=== PATIENT | female | born 1970 | race American Indian/Alaskan Native ===

== ENCOUNTER 2019-03-22 13:17 | Emergency (ER) | payer BC ==
[2019-03-22 13:25] VITALS: BP 141/76
--- NOTE | 2019-03-22 13:36 | Emergency Department Report ---
Blank Doc - Documentation Documentation: This is a 48-year-old female that presents with left shoulder pain after lifting a bowling ball. This initial assessment/diagnostic orders/clinical plan/treatment(s) is/are subject to change based on patient's health status, clinical progression and re- assessment by fellow clinical providers in the ED. Further treatment and workup at subsequent clinical providers discretion. Patient/guardians urged not to elope from the ED as their condition may be serious if not clinically assessed and managed. Initial orders include: 1- Patient sent to [facility] for further evaluation and treatment 2- xray
--- NOTE | 2019-03-22 14:24 | XRay Report ---
PROCEDURE: XR SHOULDER 2+V LT TECHNIQUE: 3 views left shoulder HISTORY: left shoulder pain COMPARISONS: None FINDINGS: No significant arthritic change. Normal alignment. No acute fracture. Mineralization unremarkable. No radiopaque foreign body IMPRESSION: No acute fracture or malalignment. No advanced arthritis. This document is electronically signed by Yoan Jennings MD., Mar 22 2019 02:22:24 PM ET
--- NOTE | 2019-03-22 15:56 | Emergency Department Report ---
ED Upper Extremity Inj HPI - General Chief Complaint: Shoulder Injury Stated Complaint: L SHOULDER PAIN Time Seen by Provider: 03/22/19 13:36 Source: patient Mode of arrival: Ambulatory Limitations: No Limitations - History of Present Illness Initial Comments: 48 yo F with left shoulder pain since lifting a 12 lb bowling ball on yesterday. Pt states she felt something pop MD Complaint: Injury to:: left, shoulder -: days(s) (1) Other Injuries: none Improves With: immobilization Worsens With: movement of extremity Associated Symptoms: heard/felt popping sensat. denies: numbness - Related Data Previous Rx's Medication Instructions Recorded Last Taken Type Naproxen [Naprosyn] 500 mg PO BID #20 tablet 03/22/19 Unknown Rx traMADol [Ultram] 50 mg PO Q6HR PRN #7 tablet 03/22/19 Unknown Rx Allergies Allergy/AdvReac Type Severity Reaction Status Date / Time No Known Allergies Allergy Unverified 03/22/19 13:19 ED Review of Systems ROS: Stated complaint: L SHOULDER PAIN Other details as noted in HPI Comment: All other systems reviewed and negative Musculoskeletal: as per HPI, arthralgia Neurological: denies: numbness, paresthesias ED Past Medical Hx - Past Medical History Hx Asthma: Yes - Surgical History Additional Surgical History: knee, C/S - Social History Smoking Status: Never Smoker Substance Use Type: None - Medications Home Medications: Home Medications Medication Instructions Recorded Confirmed Last Taken Type Naproxen [Naprosyn] 500 mg PO BID #20 tablet 03/22/19 Unknown Rx traMADol [Ultram] 50 mg PO Q6HR PRN #7 tablet 03/22/19 Unknown Rx ED Physical Exam - General Limitations: No Limitations General appearance: alert, in no apparent distress - Head Head exam: Present: atraumatic - Eye Eye exam: Present: normal appearance - ENT ENT exam: Present: mucous membranes moist - Neck Neck exam: Present: normal inspection - Respiratory Respiratory exam: Present: normal lung sounds bilaterally. Absent: respiratory distress - Cardiovascular Cardiovascular Exam: Present: regular rate, normal rhythm - GI/Abdominal GI/Abdominal exam: Absent: distended - Extremities Exam Extremities exam: Present: other (pain w/ abduction of left shoulder, decreased ROM; strength 5/5 in LUE; sensation grossly intact) - Neurological Exam Neurological exam: Present: alert, oriented X3. Absent: motor sensory deficit - Psychiatric Psychiatric exam: Present: normal affect, normal mood - Skin Skin exam: Present: warm, dry, intact, normal color ED Course Vital Signs 03/22/19 13:24 Temperature 98.0 F Pulse Rate 90 Respiratory 16 Rate Blood Pressure 141/76 O2 Sat by Pulse 97 Oximetry ED Medical Decision Making - Radiology Data Radiology results: report reviewed, image reviewed - Differential Diagnosis tendinitis, fracture, dislocation Critical care attestation.: If time is entered above; I have spent that time in minutes in the direct care of this critically ill patient, excluding procedure time. ED Disposition Clinical Impression: Rotator cuff (capsule) sprain Disposition: TO HOME OR SELFCARE Is pt being admited?: No Condition: Stable Instructions: Rotator Cuff Injury (ED), Rotator Cuff Tendinitis (ED) Prescriptions: Naproxen [Naprosyn] 500 mg PO BID #20 tablet traMADol [Ultram] 50 mg PO Q6HR PRN #7 tablet PRN Reason: Pain Referrals: VICTOR M PINZON MD [Staff Physician] - 3-5 Days MAT VARNER MD [Primary Care Provider] - 3-5 Days Time of Disposition: 16:01
== END 2019-03-22 16:22 | disposition home or self-care (01) ==
LOC: ED 13:17
DX: S43.422A Sprain of left rotator cuff capsule, initial encounter (principal); J45.909 Unspecified asthma, uncomplicated; X50.9XXA Other and unspecified overexertion or strenuous movements or postures, initial encounter; Y93.89 Activity, other specified; Y92.89 Other specified places as the place of occurrence of the external cause; Y99.8 Other external cause status

== ENCOUNTER 2019-05-31 16:27 | Inpatient (IN) | payer BC ==
[2019-05-31] MEDS ORDERED: ASPIRIN PO ONE (16:37)
[2019-05-31] MEDS ORDERED: MORPHINE IV ONE (17:00)
--- NOTE | 2019-05-31 17:01 | Emergency Department Report ---
ED Chest Pain HPI - General Chief Complaint: Chest Pain Stated Complaint: JUSTO Time Seen by Provider: 05/31/19 16:53 Source: patient, EMS Mode of arrival: Stretcher Limitations: No Limitations - History of Present Illness Initial Comments: Patient is a 48-year-old female presents to the emergency room for chest pain. Patient states the pain started at 3 PM. Patient states the pain is radiating to her neck and to her back. Patient states the pain is a 10 out of 10 per patient states she received aspirin and nitroglycerin in route by EMS with no relief. Patient states the pain is a 10 out of 10. Patient also complains of shortness of breath. Patient denies diaphoresis. Patient denies fever and chills. Patient denies anxiety. Patient states she is also having left shoulder pain but that was from a previous injury. Patient states she is not sure when her last menstrual period was MD Complaint: chest pain -: Sudden Pain Location: substernal, left chest Pain Radiation: back, neck Severity: severe Severity scale (0 -10): 10 Quality: sharp Consistency: constant Improves With: rest Worsens With: exertion re: dyspnea. denies: nausea, vomting, diaphoresis, sense of impending doom Other Symptoms: denies: cough, fever, syncope, rash, acid taste in mouth, leg swelling, palpitations, burping Treatments Prior to Arrival: none Aspirin use within the Past 7 Days: (0) No - Related Data On Oral Contraceptives: No Home Medications Medication Instructions Recorded Confirmed Last Taken Diclofenac Sodium 75 mg PO BID 05/31/19 05/31/19 05/30/19 Tizanidine HCl [Zanaflex 4mg CAP] 4 mg PO QDAY 05/31/19 05/31/19 05/30/19 Allergies Allergy/AdvReac Type Severity Reaction Status Date / Time No Known Allergies Allergy Unverified 03/22/19 13:19 Heart Score - HEART Score History: Moderately suspicious EKG: Non-specific Age: 45-65 Risk factors: No known risk factors Troponin: < normal limit HEART Score: 3 ED Review of Systems ROS: Stated complaint: JUSTO Other details as noted in HPI Constitutional: denies: chills, fever Eyes: denies: eye pain, eye discharge, vision change ENT: denies: ear pain, throat pain Respiratory: shortness of breath. denies: cough, wheezing Cardiovascular: chest pain. denies: palpitations Endocrine: no symptoms reported Gastrointestinal: denies: abdominal pain, nausea, diarrhea Genitourinary: denies: urgency, dysuria, discharge Musculoskeletal: denies: back pain, joint swelling, arthralgia Skin: denies: rash, lesions Neurological: denies: headache, weakness, paresthesias Psychiatric: denies: anxiety, depression Hematological/Lymphatic: denies: easy bleeding, easy bruising ED Past Medical Hx - Past Medical History Previous Medical History?: Yes Hx Diabetes: No Hx Asthma: Yes - Surgical History Past Surgical History?: Yes Additional Surgical History: knee, C/S - Family History Family history: no significant - Social History Smoking Status: Never Smoker Substance Use Type: None - Medications Home Medications: Home Medications Medication Instructions Recorded Confirmed Last Taken Type Diclofenac Sodium 75 mg PO BID 05/31/19 05/31/19 05/30/19 History Tizanidine HCl [Zanaflex 4mg CAP] 4 mg PO QDAY 05/31/19 05/31/19 05/30/19 History ED Physical Exam - General Limitations: No Limitations General appearance: alert, in no apparent distress - Head Head exam: Present: atraumatic, normocephalic - Eye Eye exam: Present: normal appearance, PERRL Pupils: Present: normal accommodation - ENT ENT exam: Present: mucous membranes moist - Neck Neck exam: Present: normal inspection - Respiratory Respiratory exam: Present: normal lung sounds bilaterally. Absent: respiratory distress, wheezes, rales - Cardiovascular Cardiovascular Exam: Present: regular rate, normal rhythm. Absent: systolic murmur, diastolic murmur, rubs, gallop - GI/Abdominal GI/Abdominal exam: Present: soft, normal bowel sounds - Extremities Exam Extremities exam: Present: normal inspection - Back Exam Back exam: Present: normal inspection - Neurological Exam Neurological exam: Present: alert, oriented X3 - Psychiatric Psychiatric exam: Present: normal affect, normal mood - Skin Skin exam: Present: warm, dry, intact, normal color. Absent: rash ED Course Vital Signs 05/31/19 05/31/19 05/31/19 16:34 16:37 19:15 Temperature 100.0 F H 98.3 F Pulse Rate 101 H 98 H Respiratory 20 12 19 Rate Blood Pressure Blood Pressure 200/124 164/80 157/80 [Left] O2 Sat by Pulse 100 100 Oximetry 05/31/19 05/31/19 05/31/19 19:30 19:46 20:00 Temperature Pulse Rate 99 H 94 H 102 H Respiratory 14 18 16 Rate Blood Pressure 162/87 157/80 141/73 Blood Pressure [Left] O2 Sat by Pulse 98 98 88 Oximetry 05/31/19 05/31/19 05/31/19 20:16 20:30 20:50 Temperature Pulse Rate 101 H 98 H 97 H Respiratory 21 29 H 17 Rate Blood Pressure 141/73 131/80 131/80 Blood Pressure [Left] O2 Sat by Pulse 98 93 98 Oximetry 05/31/19 05/31/19 05/31/19 20:52 21:00 21:10 Temperature Pulse Rate 98 H 99 H Respiratory 21 20 21 Rate Blood Pressure 130/79 130/79 Blood Pressure [Left] O2 Sat by Pulse 99 97 Oximetry 05/31/19 05/31/19 21:15 21:28 Temperature 98.6 F Pulse Rate Respiratory Rate Blood Pressure Blood Pressure [Left] O2 Sat by Pulse 98 Oximetry - Reevaluation(s) Reevaluation #1: I discussed results with patient. I discussed plan of care with patient. Patient agrees with plan of care. Patient will be admitted to the hospitalist service. 05/31/19 18:00 - Consultations Consultation #1: Hospitalist consult for admission. Hospitalist to admit patient. 05/31/19 18:25 ZAFAR score - Zafar Score Age > 65: (0) No Aspirin use within the Past 7 Days: (0) No 3 or more CAD Risk Factors: (0) No 2 or more Angina events in past 24 hrs: (0) No Known CAD with more than 50% Stenosis: (0) No Elevated Cardiac Markers: (0) No ST Deviation Greater than 0.5mm: (0) No ZAFAR Score: 0 ED Medical Decision Making - Lab Data Result diagrams: 05/31/19 Unknown 05/31/19 Unknown - EKG Data -: EKG Interpreted by Me EKG shows normal: sinus rhythm, axis, intervals, QRS complexes, ST-T waves Rate: normal - Radiology Data Radiology results: report reviewed CHEST 1 VIEW INDICATION / CLINICAL INFORMATION: Chest Pain. COMPARISON: None available. FINDINGS: SUPPORT DEVICES: None. HEART / MEDIASTINUM: No significant abnormality. LUNGS / PLEURA: No significant pulmonary or pleural abnormality. No pneumothorax. ADDITIONAL FINDINGS: No significant additional findings. IMPRESSION: 1. No acute findings. - Medical Decision Making Patient is a 48-year-old female presents emergency room with chest pain and shortness of breath. Patient has been radiating to the neck. Patient slept on it consistent with DKA. Patient stating she doesn't have a history of any medical problems except for asthma. Elevated sugar. Venous pH done after a liter of fluid was given. Chest x-ray negative. EKG negative. Patient admitted to the ICU - Differential Diagnosis chest pain. ACS. Shortness of breath. DKA. Critical Care Time: Yes Critical care attestation.: If time is entered above; I have spent that time in minutes in the direct care of this critically ill patient, excluding procedure time. Critical Care Time: 45 minutes ED Disposition Clinical Impression: SOB (shortness of breath), Hyponatremia, Diabetic hyperosmolar non-ketotic state Chest pain Qualifiers: Chest pain type: unspecified Qualified Code(s): R07.9 - Chest pain, unspecified DKA (diabetic ketoacidoses) Qualifiers: Diabetes mellitus type: type 2 Diabetes mellitus complication detail: without coma Qualified Code(s): E11.10 - Type 2 diabetes mellitus with ketoacidosis without coma Disposition: DC-09 OP ADMIT IP TO THIS HOSP Is pt being admited?: Yes Does the pt Need Aspirin: No Condition: Fair Time of Disposition: 18:30
[2019-05-31 17:10] LABS: Basophils # (Auto) 0.1 K/mm3 (0.0-0.1); Basophils % (Auto) 0.9 % (0.0-1.8); Eosinophils % (Auto) 0.1 % (0.0-4.3); Hematocrit 47.5 % (30.3-42.9); Hemoglobin 16.1 gm/dl (10.1-14.3); Lymphocytes # (Auto) 1.7 K/mm3 (1.2-5.4); Lymphocytes % (Auto) 11.7 % (13.4-35.0); Mean Corpuscular HGB Conc 34 % (30-34); Mean Corpuscular Volume 87 fl (79-97); Monocytes # (Auto) 0.1 K/mm3 (0.0-0.8); Monocytes % (Auto) 0.7 % (0.0-7.3); Platelet Count 310 K/mm3 (140-440); Red Blood Count 5.44 M/mm3 (3.65-5.03); Red Cell Distribution Width 13.9 % (13.2-15.2)
[2019-05-31 17:20] LABS: Bilirubin,Urine NEG (Negative); Blood,Urine NEG (Negative); Color,Urine Colorless (Yellow); Mucus,Urine FEW /HPF; Urobilinogen,Urine < 2.0 mg/dL (<2.0)
[2019-05-31 17:32] LABS: BUN/Creatinine Ratio 13; Blood Urea Nitrogen 10 mg/dL (7-17); Calcium 9.2 mg/dL (8.4-10.2); Hemolysis Index 10
[2019-05-31] MEDS ORDERED: NACL 0.9% 1000 ML 1,000 ML IV ONE ×2 (17:50→20:34)
[2019-05-31] MEDS ORDERED: D50W (25GM) Syringe IV PRN ×2 (17:50→20:09)
--- NOTE | 2019-05-31 17:52 | XRay Report ---
CHEST 1 VIEW INDICATION / CLINICAL INFORMATION: Chest Pain. COMPARISON: None available. FINDINGS: SUPPORT DEVICES: None. HEART / MEDIASTINUM: No significant abnormality. LUNGS / PLEURA: No significant pulmonary or pleural abnormality. No pneumothorax. ADDITIONAL FINDINGS: No significant additional findings. IMPRESSION: 1. No acute findings. Signer Name: Beto Lemon MD Signed: 05/31/2019 5:48 PM Workstation Name: [id number]
[2019-05-31] MEDS: HumuLIN R 100 UNITS in NACL 0.9% 99 ML IV SCH (18:33)
[2019-05-31 19:01] LABS: BUN/Creatinine Ratio 16; Blood Urea Nitrogen 11 mg/dL (7-17); Calcium 8.9 mg/dL (8.4-10.2); Hemolysis Index 31
--- NOTE | 2019-05-31 20:08 | History and Physical Report ---
History of Present Illness Date of examination: 05/31/19 Date of admission: 05/31/2019 Chief complaint: Chest pain for 1 day Generalized weakness for 1 day History of present illness: 48-year-old -[place] female, obese with no significant past medical history comes in for chest pain since 3 PM. Chest pain radiated into her neck and her back. EMS gave her aspirin and nitroglycerin with no relief. Patient also has generalized weakness and polyuria. No fever or chills. No diaphoresis. Some shortness of breath present. No palpitations. No exacerbating or precipitating factors. Past Medical History Previous Medical History?: Yes Hx Asthma: Yes Left rotator cuff injury Not a known diabetic Surgical History Past Surgical History?: Yes Additional Surgical History: Right knee arthroscopy , 1 Family History Family history: no significant Social History Smoking Status: Never Smoker Substance Use Type: None Medications Home Medications: Home Medications Medication Instructions Recorded Confirmed Last Taken Type Naproxen [Naprosyn] 500 mg PO BID #20 tablet 03/22/19 Unknown Rx traMADol [Ultram] 50 mg PO Q6HR PRN #7 tablet 03/22/19 Unknown Rx Review of systems ROS: Stated complaint: JUSTO Other details as noted in HPI Constitutional: denies: chills, fever,, feels weak and polyuria present Eyes: denies: eye pain, eye discharge, blurred vision present ENT: denies: ear pain, throat pain Respiratory: shortness of breath. denies: cough, wheezing Cardiovascular: chest pain. denies: palpitations Endocrine: no symptoms reported Gastrointestinal: denies: abdominal pain, nausea, diarrhea Genitourinary: denies: urgency, dysuria, discharge Musculoskeletal: denies: back pain, joint swelling, arthralgia Skin: denies: rash, lesions Neurological: denies: headache, weakness, paresthesias Psychiatric: denies: anxiety, depression Hematological/Lymphatic: denies: easy bleeding, easy bruising 14 point review of systems done and otherwise negative Medications and Allergies Allergies Allergy/AdvReac Type Severity Reaction Status Date / Time No Known Allergies Allergy Unverified 03/22/19 13:19 Home Medications Medication Instructions Recorded Confirmed Last Taken Type Diclofenac Sodium 75 mg PO BID 05/31/19 05/31/19 05/30/19 History Tizanidine HCl [Zanaflex 4mg CAP] 4 mg PO QDAY 05/31/19 05/31/19 05/30/19 History Active Meds: Active Medications Dextrose (D50w (25gm) Syringe) 0 ml IV PRN PRN PRN Reason: Hypoglycemia Insulin Human Regular 100 (units/ Sodium Chloride) 100 mls @ 1 mls/hr IV TITR EMI; Protocol Last Titration: 05/31/19 19:46 Dose: 7 units/hr, 7 mls/hr Documented by: Exam - Constitutional Vitals: Temp Pulse Resp BP Pulse Ox 100.0 F H 101 H 12 164/80 100 05/31/19 16:37 05/31/19 16:37 05/31/19 16:37 05/31/19 16:37 05/31/19 16:37 General appearance: Present: mild distress, well-nourished - EENT Eyes: Present: PERRL ENT: hearing intact, clear oral mucosa - Neck Neck: Present: supple, normal ROM - Respiratory Respiratory effort: normal Respiratory: bilateral: CTA - Cardiovascular Heart rate: 88 Rhythm: regular Heart Sounds: Present: S1 & S2. Absent: rub, click - Extremities Extremities: no ischemia, pulses intact, pulses symmetrical, No edema Peripheral Pulses: within normal limits - Abdominal General gastrointestinal: Present: soft, non-tender, non-distended, normal bowel sounds Female genitourinary: Present: normal - Rectal Rectal Exam: deferred - Integumentary Integumentary: Present: clear, warm, dry - Musculoskeletal Musculoskeletal: gait normal, strength equal bilaterally - Psychiatric Psychiatric: appropriate mood/affect, intact judgment & insight - Neurologic Neurologic: CNII-XII intact, moves all extremities - Allied Health Allied health notes reviewed: nursing, case management Results - Labs CBC & Chem 7: 05/31/19 Unknown 05/31/19 Unknown Labs: Laboratory Last Values WBC 14.2 K/mm3 (4.5-11.0) H 05/31/19 Unknown RBC 5.44 M/mm3 (3.65-5.03) H 05/31/19 Unknown Hgb 16.1 gm/dl (10.1-14.3) H 05/31/19 Unknown Hct 47.5 % (30.3-42.9) H 05/31/19 Unknown MCV 87 fl (79-97) 05/31/19 Unknown MCH 30 pg (28-32) 05/31/19 Unknown MCHC 34 % (30-34) 05/31/19 Unknown RDW 13.9 % (13.2-15.2) 05/31/19 Unknown Plt Count 310 K/mm3 (140-440) 05/31/19 Unknown Lymph % (Auto) 11.7 % (13.4-35.0) L 05/31/19 Unknown Parmer % (Auto) 0.7 % (0.0-7.3) 05/31/19 Unknown Eos % (Auto) 0.1 % (0.0-4.3) 05/31/19 Unknown Baso % (Auto) 0.9 % (0.0-1.8) 05/31/19 Unknown Lymph # 1.7 K/mm3 (1.2-5.4) 05/31/19 Unknown Parmer # 0.1 K/mm3 (0.0-0.8) 05/31/19 Unknown Eos # 0.0 K/mm3 (0.0-0.4) 05/31/19 Unknown Baso # 0.1 K/mm3 (0.0-0.1) 05/31/19 Unknown Seg Neutrophils % 86.6 % (40.0-70.0) H 05/31/19 Unknown Seg Neutrophils # 12.3 K/mm3 (1.8-7.7) H 05/31/19 Unknown VBG pH 7.397 (7.320-7.420) 05/31/19 18:50 Sodium 129 mmol/L (137-145) L 05/31/19 Unknown Potassium 4.8 mmol/L (3.6-5.0) 05/31/19 Unknown Chloride 92.6 mmol/L (98-107) L 05/31/19 Unknown Carbon Dioxide 18 mmol/L (22-30) L 05/31/19 Unknown 23 mmol/L 05/31/19 Unknown BUN 10 mg/dL (7-17) 05/31/19 Unknown 0.8 mg/dL (0.7-1.2) 05/31/19 Unknown Estimated GFR > 60 ml/min 05/31/19 Unknown 13 % 05/31/19 Unknown Glucose 666 mg/dL (65-100) H* 05/31/19 Unknown POC Glucose 388 (70-105) H 05/31/19 19:52 Calcium 9.2 mg/dL (8.4-10.2) 05/31/19 Unknown Phosphorus 2.80 mg/dL (2.5-4.5) 05/31/19 18:37 Magnesium 1.90 mg/dL (1.7-2.3) 05/31/19 18:37 < 0.010 ng/mL (0.00-0.029) 05/31/19 Unknown HCG, Qual Negative (Negative) 05/31/19 17:00 Colorless (Yellow) 05/31/19 Unknown Clear (Clear) 05/31/19 Unknown 6.0 (5.0-7.0) 05/31/19 Unknown Ur Specific [place] 1.024 (1.003-1.030) 05/31/19 Unknown 30 mg/dl mg/dL (Negative) 05/31/19 Unknown >=500 mg/dL (Negative) 05/31/19 Unknown Tr mg/dL (Negative) 05/31/19 Unknown Neg (Negative) 05/31/19 Unknown Neg (Negative) 05/31/19 Unknown Neg (Negative) 05/31/19 Unknown < 2.0 mg/dL (<2.0) 05/31/19 Unknown Ur Leukocyte Esterase Neg (Negative) 05/31/19 Unknown 1.0 /HPF (0.0-6.0) 05/31/19 Unknown 4.0 /HPF (0.0-6.0) 05/31/19 Unknown Few /HPF 05/31/19 Unknown Short CBC 05/31/19 Range/Units Unknown WBC 14.2 H (4.5-11.0) K/mm3 Hgb 16.1 H (10.1-14.3) gm/dl Hct 47.5 H (30.3-42.9) % Plt Count 310 (140-440) K/mm3 BMP 05/31/19 05/31/19 18:37 Unknown Sodium 131 L 129 L Potassium 5.1 H 4.8 Chloride 95.8 L 92.6 L Carbon Dioxide 20 L 18 L BUN 11 10 Creatinine 0.7 0.8 Glucose 587 H* 666 H* Calcium 8.9 9.2 Cardiac Enzymes 05/31/19 Range/Units Unknown Troponin T < 0.010 (0.00-0.029) ng/mL Urine 07/31/19 Range/Units Unknown Urine Color Colorless (Yellow) Urine pH 6.0 (5.0-7.0) Ur Specific [place] 1.024 (1.003-1.030) Urine Protein 30 mg/dl (Negative) mg/dL Urine Glucose (UA) >=500 (Negative) mg/dL - Imaging and Cardiology EKG: report reviewed (sinus rhythm heart rate of 92/m) Chest x-ray: report reviewed (no acute findings) Assessment and Plan Assessment and plan: Critical care segment The high probability of a clinically significant, sudden or life-threatening deterioration of the pulmonary, cardiac, renal systems required by full and direct attention, intervention and personal management. The aggregate K time was 35 minutes. This time is in addition to times when performing reported procedures but includes the following #1 data review and interpretation #2 patient assessment and monitoring of vital signs #3 documentation #4 medication orders and management Advance Directives: Yes (full code) VTE prophylaxis?: Chemical Plan of care discussed with patient/family: Yes - Patient Problems (1) Diabetic hyperosmolar non-ketotic state Current Visit: Yes Status: Acute Plan to address problem: New-onset diabetes with high blood glucose levels of 699 Clinical picture consistent with hyperosmolar state Urine ketones trace No DKA IV insulin per DKA protocol IV fluids for now Admit to ICU Critical care consult requested Diabetes education Patient may be switched to NovoLog Mix 70/30 twice a day--- will defer to the primary team Check hemoglobin A1c Patient to be educated about insulin administration (2) Chest pain Current Visit: Yes Status: Acute Qualifiers: Chest pain type: unspecified Qualified Code(s): R07.9 - Chest pain, unspecified Plan to address problem: Chest pain protocol Serial troponins Lexiscan in the morning Gerd in the differential diagnosis (3) Hyponatremia Current Visit: Yes Status: Acute Plan to address problem: Should correct with control of blood glucose levels (4) Hyperkalemia Current Visit: Yes Status: Acute Plan to address problem: Mild Should correct with IV insulin (5) Left anterior shoulder pain Current Visit: Yes Status: Chronic Plan to address problem: Secondary to rotator cuff tear Follow up with orthopedics as outpatient (6) Leukocytosis Current Visit: Yes Status: Acute Plan to address problem: Secondary to probable demargination No antibiotics initiated Chest x-ray and urine negative for infection (7) DVT prophylaxis Current Visit: Yes Status: Acute Plan to address problem: On Lovenox and GI prophylaxis
[2019-05-31] MEDS ORDERED: DILAUDID IV PRN (20:14)
[2019-05-31] MEDS ORDERED: IBUPROFEN PO PRN (20:14)
[2019-05-31] MEDS ORDERED: SODIUM CHLORIDE FLUSH SYRINGE 10 ML IV PRN (20:14)
[2019-05-31 20:52] LABS: BUN/Creatinine Ratio 18; Blood Urea Nitrogen 11 mg/dL (7-17); Calcium 8.9 mg/dL (8.4-10.2); Hemolysis Index 21
[2019-05-31] MEDS ORDERED: KCL 10MEQ/100ML 10 MEQ/100 ML BAG IV PRN ×2 (21:00)
[2019-05-31] MEDS ORDERED: HumuLIN R 100 UNITS in NACL 0.9% 99 ML IV SCH (21:00)
[2019-05-31] MEDS ORDERED: D5W/0.45% NACL/KCL 20 MEQ 20 MEQ/1,000 ML BAG IV SCH (21:00)
[2019-05-31] MEDS ORDERED: NACL 0.9% 1000 ML 1,000 ML ONE (21:07)
[2019-05-31] MEDS ORDERED: NACL 0.9% 1000 ML 1,000 ML IV SCH (22:00)
[2019-05-31 22:08] LABS: BUN/Creatinine Ratio 18; Blood Urea Nitrogen 11 mg/dL (7-17); Hemolysis Index 6
[2019-05-31] MEDS: SODIUM CHLORIDE FLUSH SYRINGE 10 ML IV SCH (22:45)
[2019-05-31] MEDS: LOVENOX SUB-Q SCH (22:52)
[2019-05-31 23:42] LABS: BUN/Creatinine Ratio 17; Blood Urea Nitrogen 10 mg/dL (7-17); Calcium 8.9 mg/dL (8.4-10.2); Hemolysis Index 5
[2019-06-01 07:39] LABS: BUN/Creatinine Ratio 18; Blood Urea Nitrogen 9 mg/dL (7-17); Calcium 8.8 mg/dL (8.4-10.2); Hemolysis Index 4
[2019-06-01] MEDS: HumuLIN R 100 UNITS in NACL 0.9% 99 ML IV SCH (09:50)
[2019-06-01] MEDS: LOVENOX SUB-Q SCH (09:52)
[2019-06-01] MEDS: SODIUM CHLORIDE FLUSH SYRINGE 10 ML IV SCH ×2 (09:53→21:40)
[2019-06-01] MEDS ORDERED: LEXISCAN IV ONE (10:00)
--- NOTE | 2019-06-01 10:21 | Progress Note ---
Assessment and Plan Assessment and plan: Patient is a 48 yo woman with a history of asthma and left rotator cuff injury who presents to [facility] with left sided Chest pains at rest that was different from the left shoulder pains. She also had dizziness and sob. She had just come back from doctor after receiving Cortisone injection for the left rotator cuff pains. She had bp of 200/124 and temp of 100.0F. Her blood glucose level was as high as 666. She denies having DM. She did have trace ketones in the urine but pH was 7.397 so she was diagnosis with HONK instead of DKA. She was placed on Insulin drip and admitted to the ICU. HONK: transition off insulin drip to long acting insulin New onset IDDM, A1c is 13.1 which means her daily average blood glucose is ~326: Education done, start sq insulin injection HypoOsm hyponatremia: treat with IVF Suspected mild metabolic acidosis, resolved Chest pains with negative Troponins x 2: stress test in AM, cancel this morning by Cardiology because patient on insulin drip, once off insulin drip Leukocytosis suspected due to the "cortisone injection" DVT ppx reviewed on sq lovenox full code CCT 33 minutes History Interval history: Patient was seen and examined. Follow-up on current diagnosis of Chest pains and new onset DM. No overnight events reported to me. Patient denies any chest pain, shortness breath, nausea/vomiting or severe headaches. Imaging, nursing note, chart, labs and old chart reviewed. Discussed with patient. Hospitalist Physical - Physical exam Narrative exam: Gen: WDWN, unkempt, NAD, Awake, Alert, Orientated x 3, bmi 42.8 HEENT: NCAT, EOMI, PERRL, OP Clear Neck: supple, no adenopathy, no thyromegaly, no JVD CVS/Heart: RRR, normal S1S2, pulses present bilaterally Chest/Lungs: CTA B, Symmetrical chest expansion, good air entry bilaterally, reproducible left side chest wall tenderness GI/Abdomen: soft, NTND, good bowel sounds, no guarding or rebound /Bladder: no suprapubic tenderness, no CVA or paraspinal tenderness Extermity/Skin: no c/c/e, no obvious rash MSK: FROM x 3, lrom left shoulder not frozen Neuro: CN 2-12 grossly intact, no new focal deficits Psych: calm - Constitutional Vitals: Temp Pulse Resp BP Pulse Ox 98.1 F 86 21 132/72 98 06/01/19 04:00 06/01/19 09:01 06/01/19 09:01 06/01/19 09:01 06/01/19 09:01 General appearance: Absent: mild distress, well-nourished Results - Labs CBC & Chem 7: 05/31/19 Unknown 06/01/19 06:36 Labs: Laboratory Last Values WBC 14.2 K/mm3 (4.5-11.0) H 05/31/19 Unknown RBC 5.44 M/mm3 (3.65-5.03) H 05/31/19 Unknown Hgb 16.1 gm/dl (10.1-14.3) H 05/31/19 Unknown Hct 47.5 % (30.3-42.9) H 05/31/19 Unknown MCV 87 fl (79-97) 05/31/19 Unknown MCH 30 pg (28-32) 05/31/19 Unknown MCHC 34 % (30-34) 05/31/19 Unknown RDW 13.9 % (13.2-15.2) 05/31/19 Unknown Plt Count 310 K/mm3 (140-440) 05/31/19 Unknown Lymph % (Auto) 11.7 % (13.4-35.0) L 05/31/[address] [place] % (Auto) 0.7 % (0.0-7.3) 05/31/19 Unknown Eos % (Auto) 0.1 % (0.0-4.3) 05/31/19 Unknown Baso % (Auto) 0.9 % (0.0-1.8) 05/31/19 Unknown Lymph # 1.7 K/mm3 (1.2-5.4) 05/31/[address] [place] # 0.1 K/mm3 (0.0-0.8) 05/31/19 Unknown Eos # 0.0 K/mm3 (0.0-0.4) 05/31/19 Unknown Baso # 0.1 K/mm3 (0.0-0.1) 05/31/19 Unknown Seg Neutrophils % 86.6 % (40.0-70.0) H 05/31/19 Unknown Seg Neutrophils # 12.3 K/mm3 (1.8-7.7) H 05/31/19 Unknown VBG pH 7.397 (7.320-7.420) 05/31/19 18:50 Sodium 135 mmol/L (137-145) L 06/01/19 06:36 Potassium 4.2 mmol/L (3.6-5.0) 06/01/19 06:36 Chloride 101.1 mmol/L (98-107) 06/01/19 06:36 Carbon Dioxide 21 mmol/L (22-30) L 06/01/19 06:36 17 mmol/L 06/01/19 06:36 BUN 9 mg/dL (7-17) 06/01/19 06:36 0.5 mg/dL (0.7-1.2) L 06/01/19 06:36 Estimated GFR > 60 ml/min 06/01/19 06:36 18 % 06/01/19 06:36 Glucose 275 mg/dL (65-100) H 06/01/19 06:36 POC Glucose 232 (70-105) H 06/01/19 09:39 13.1 % (4-6) H 05/31/19 21:28 Calcium 8.8 mg/dL (8.4-10.2) 06/01/19 06:36 Phosphorus 2.10 mg/dL (2.5-4.5) L D 05/31/19 21:28 Magnesium 1.80 mg/dL (1.7-2.3) 05/31/19 21:28 < 0.010 ng/mL (0.00-0.029) 06/01/19 06:36 HCG, Qual Negative (Negative) 05/31/19 17:00 Colorless (Yellow) 05/31/19 Unknown Clear (Clear) 05/31/19 Unknown 6.0 (5.0-7.0) 05/31/19 Unknown Ur Specific [place] 1.024 (1.003-1.030) 05/31/19 Unknown 30 mg/dl mg/dL (Negative) 05/31/19 Unknown >=500 mg/dL (Negative) 05/31/19 Unknown Tr mg/dL (Negative) 05/31/19 Unknown Neg (Negative) 05/31/19 Unknown Neg (Negative) 05/31/19 Unknown Neg (Negative) 05/31/19 Unknown < 2.0 mg/dL (<2.0) 05/31/19 Unknown Ur Leukocyte Esterase Neg (Negative) 05/31/19 Unknown 1.0 /HPF (0.0-6.0) 05/31/19 Unknown 4.0 /HPF (0.0-6.0) 05/31/19 Unknown Few /HPF 05/31/19 Unknown Active Medications - Current Medications Current Medications: Generic Name Dose Route Start Last Admin Trade Name Freq PRN Reason Stop Dose Admin Enoxaparin Sodium 40 mg 05/31/19 21:00 06/01/19 09:52 Lovenox SUB-Q 40 mg QDAY EMI Administration Hydromorphone HCl 0.5 mg 05/31/19 20:14 Dilaudid IV Q3H PRN Pain , Severe (7-10) Sodium Chloride 1,000 mls @ 125 mls/hr 05/31/19 22:00 05/31/19 21:00 Nacl 0.9% 1000 Ml IV 125 mls/hr DIRECT EMI Administration Insulin Glargine 10 units 06/01/19 10:02 Lantus SUB-Q 06/01/19 10:03 ONCE ONE Sodium Chloride 10 ml 05/31/19 22:00 06/01/19 09:53 Sodium Chloride Flush Syringe 10 Ml IV 10 ml BID EMI Administration Sodium Chloride 10 ml 05/31/19 20:14 Sodium Chloride Flush Syringe 10 Ml IV PRN PRN LINE FLUSH
[2019-06-01] MEDS ORDERED: D50W (25GM) Syringe IV PRN (10:26)
[2019-06-01 10:49] LABS: Creatinine,Urine 104.3 mg/dL (0.1-20.0); Microalbumin/Creatinine Ratio 54.6 ug/mg
[2019-06-01] MEDS ORDERED: LANTUS SUB-Q ONE (11:00)
[2019-06-01] MEDS: BABY ASPIRIN PO SCH (11:03)
[2019-06-01] MEDS: HumaLOG SUB-Q SCH ×3 (12:27→23:34)
--- NOTE | 2019-06-01 13:45 | Consultation ---
History of Present Illness - Reason for Consult Consult date: 06/01/19 [facility] Requesting physician: LEXA COLON - History of Present Illness Patient is a 48 yo woman with a history of asthma and left rotator cuff injury who presents to [facility] with left sided Chest pains at rest that was different from the left shoulder pains. She also had dizziness and sob. She had just come back from doctor after receiving Cortisone injection for the left rotator cuff pains. She had bp of 200/124 and temp of 100.0F. Her blood glucose level was as high as 666. She denies having DM. She did have trace ketones in the urine but pH was normal. Despite this was placed on insulin drip and admitted to the unit. Since then drip has been discontinued and patient has been started on lantus. Past History Past Medical History: hypertension, other (Joint issues,) Past Surgical History: Other (rotator cuff) Social history: no significant social history Medications and Allergies Allergies Allergy/AdvReac Type Severity Reaction Status Date / Time No Known Allergies Allergy Unverified 03/22/19 13:19 Home Medications Medication Instructions Recorded Confirmed Last Taken Type Diclofenac Sodium 75 mg PO BID 05/31/19 05/31/19 05/30/19 History Tizanidine HCl [Zanaflex 4mg CAP] 4 mg PO QDAY 05/31/19 05/31/19 05/30/19 History Active Meds: Active Medications Aspirin (Baby Aspirin) 81 mg PO QDAY [facility] Last Admin: 06/01/19 11:03 Dose: 81 mg Documented by: Atorvastatin Calcium (Lipitor) 40 mg PO QHS [facility] Dextrose (D50w (25gm) Syringe) 50 ml IV PRN PRN PRN Reason: Hypoglycemia Enoxaparin Sodium (Lovenox) 40 mg SUB-Q QDAY [facility] Last Admin: 06/01/19 09:52 Dose: 40 mg Documented by: Hydromorphone HCl (Dilaudid) 0.5 mg IV Q3H PRN PRN Reason: Pain , Severe (7-10) Sodium Chloride (Nacl 0.9% 1000 Ml) 1,000 mls @ 125 mls/hr IV DIRECT [facility] Last Admin: 05/31/19 21:00 Dose: 125 mls/hr Documented by: Insulin Glargine (Lantus) 10 units SUB-Q QHS EMI Insulin Human Lispro (Humalog) 0 unit SUB-Q ACHS EMI; Protocol Last Admin: 06/01/19 12:27 Dose: 4 unit Documented by: Sodium Chloride (Sodium Chloride Flush Syringe 10 Ml) 10 ml IV BID [facility] Last Admin: 06/01/19 09:53 Dose: 10 ml Documented by: Sodium Chloride (Sodium Chloride Flush Syringe 10 Ml) 10 ml IV PRN PRN PRN Reason: LINE FLUSH Review of Systems All systems: negative Exam - Constitutional Vitals: Temp Pulse Resp BP Pulse Ox 98.1 F 87 18 144/94 98 06/01/19 04:00 06/01/19 13:01 06/01/19 13:01 06/01/19 13:01 06/01/19 13:01 General appearance: Present: no acute distress, obese - EENT Eyes: Present: PERRL, EOM intact ENT: hearing intact - Neck Neck: Present: supple, normal ROM - Respiratory Respiratory effort: normal Respiratory: bilateral: CTA - Cardiovascular Rhythm: regular Heart Sounds: Present: S1 & S2 - Extremities Extremities: no ischemia Results - Labs CBC & Chem 7: 05/31/19 Unknown 06/01/19 06:36 Labs: Abnormal lab results 05/31/19 05/31/19 05/31/19 Range/Units 18:24 18:37 19:52 WBC (4.5-11.0) K/mm3 RBC (3.65-5.03) M/mm3 Hgb (10.1-14.3) gm/dl Hct (30.3-42.9) % Lymph % (Auto) (13.4-35.0) % Seg Neutrophils % (40.0-70.0) % Seg Neutrophils # (1.8-7.7) K/mm3 Sodium 131 L (137-145) mmol/L Potassium 5.1 H (3.6-5.0) mmol/L Chloride 95.8 L (98-107) mmol/L Carbon Dioxide 20 L (22-30) mmol/L Creatinine (0.7-1.2) mg/dL Glucose 587 H* (65-100) mg/dL POC Glucose 459 H 388 H (70-105) Hemoglobin A1c (4-6) % Phosphorus (2.5-4.5) mg/dL Urine Creatinine (0.1-20.0) mg/dL 05/31/19 05/31/19 05/31/19 Range/Units 20:13 20:44 21:28 WBC (4.5-11.0) K/mm3 RBC (3.65-5.03) M/mm3 Hgb (10.1-14.3) gm/dl Hct (30.3-42.9) % Lymph % (Auto) (13.4-35.0) % Seg Neutrophils % (40.0-70.0) % Seg Neutrophils # (1.8-7.7) K/mm3 Sodium 130 L (137-145) mmol/L Potassium 5.2 H (3.6-5.0) mmol/L Chloride 94.6 L (98-107) mmol/L Carbon Dioxide 20 L (22-30) mmol/L Creatinine 0.6 L (0.7-1.2) mg/dL Glucose 535 H* (65-100) mg/dL POC Glucose 362 H (70-105) Hemoglobin A1c 13.1 H (4-6) % Phosphorus (2.5-4.5) mg/dL Urine Creatinine (0.1-20.0) mg/dL 05/31/19 05/31/19 05/31/19 Range/Units 21:28 21:28 21:41 WBC (4.5-11.0) K/mm3 RBC (3.65-5.03) M/mm3 Hgb (10.1-14.3) gm/dl Hct (30.3-42.9) % Lymph % (Auto) (13.4-35.0) % Seg Neutrophils % (40.0-70.0) % Seg Neutrophils # (1.8-7.7) K/mm3 Sodium 135 L (137-145) mmol/L Potassium (3.6-5.0) mmol/L Chloride (98-107) mmol/L Carbon Dioxide 20 L (22-30) mmol/L Creatinine 0.6 L (0.7-1.2) mg/dL Glucose 370 H (65-100) mg/dL POC Glucose 312 H (70-105) Hemoglobin A1c (4-6) % Phosphorus 2.10 L D (2.5-4.5) mg/dL Urine Creatinine (0.1-20.0) mg/dL 05/31/19 05/31/19 05/31/19 Range/Units 22:44 22:57 23:34 WBC (4.5-11.0) K/mm3 RBC (3.65-5.03) M/mm3 Hgb (10.1-14.3) gm/dl Hct (30.3-42.9) % Lymph % (Auto) (13.4-35.0) % Seg Neutrophils % (40.0-70.0) % Seg Neutrophils # (1.8-7.7) K/mm3 Sodium 136 L (137-145) mmol/L Potassium (3.6-5.0) mmol/L Chloride (98-107) mmol/L Carbon Dioxide (22-30) mmol/L Creatinine 0.6 L (0.7-1.2) mg/dL Glucose 316 H (65-100) mg/dL POC Glucose 288 H 294 H (70-105) Hemoglobin A1c (4-6) % Phosphorus (2.5-4.5) mg/dL Urine Creatinine (0.1-20.0) mg/dL 05/31/19 05/31/19 06/01/19 Range/Units Unknown Unknown 00:37 WBC 14.2 H (4.5-11.0) K/mm3 RBC 5.44 H (3.65-5.03) M/mm3 Hgb 16.1 H (10.1-14.3) gm/dl Hct 47.5 H (30.3-42.9) % Lymph % (Auto) 11.7 L (13.4-35.0) % Seg Neutrophils % 86.6 H (40.0-70.0) % Seg Neutrophils # 12.3 H (1.8-7.7) K/mm3 Sodium 129 L (137-145) mmol/L Potassium (3.6-5.0) mmol/L Chloride 92.6 L (98-107) mmol/L Carbon Dioxide 18 L (22-30) mmol/L Creatinine (0.7-1.2) mg/dL Glucose 666 H* (65-100) mg/dL POC Glucose 281 H (70-105) Hemoglobin A1c (4-6) % Phosphorus (2.5-4.5) mg/dL Urine Creatinine (0.1-20.0) mg/dL 06/01/19 06/01/19 06/01/19 Range/Units 01:39 02:35 03:40 WBC (4.5-11.0) K/mm3 RBC (3.65-5.03) M/mm3 Hgb (10.1-14.3) gm/dl Hct (30.3-42.9) % Lymph % (Auto) (13.4-35.0) % Seg Neutrophils % (40.0-70.0) % Seg Neutrophils # (1.8-7.7) K/mm3 Sodium (137-145) mmol/L Potassium (3.6-5.0) mmol/L Chloride (98-107) mmol/L Carbon Dioxide (22-30) mmol/L Creatinine (0.7-1.2) mg/dL Glucose (65-100) mg/dL POC Glucose 244 H 269 H 244 H (70-105) Hemoglobin A1c (4-6) % Phosphorus (2.5-4.5) mg/dL Urine Creatinine (0.1-20.0) mg/dL 06/01/19 06/01/19 06/01/19 Range/Units 04:37 05:38 06:36 WBC (4.5-11.0) K/mm3 RBC (3.65-5.03) M/mm3 Hgb (10.1-14.3) gm/dl Hct (30.3-42.9) % Lymph % (Auto) (13.4-35.0) % Seg Neutrophils % (40.0-70.0) % Seg Neutrophils # (1.8-7.7) K/mm3 Sodium 135 L (137-145) mmol/L Potassium (3.6-5.0) mmol/L Chloride (98-107) mmol/L Carbon Dioxide 21 L (22-30) mmol/L Creatinine 0.5 L (0.7-1.2) mg/dL Glucose 275 H (65-100) mg/dL POC Glucose 256 H 276 H (70-105) Hemoglobin A1c (4-6) % Phosphorus (2.5-4.5) mg/dL Urine Creatinine (0.1-20.0) mg/dL 06/01/19 06/01/19 06/01/19 Range/Units 06:37 07:45 08:39 WBC (4.5-11.0) K/mm3 RBC (3.65-5.03) M/mm3 Hgb (10.1-14.3) gm/dl Hct (30.3-42.9) % Lymph % (Auto) (13.4-35.0) % Seg Neutrophils % (40.0-70.0) % Seg Neutrophils # (1.8-7.7) K/mm3 Sodium (137-145) mmol/L Potassium (3.6-5.0) mmol/L Chloride (98-107) mmol/L Carbon Dioxide (22-30) mmol/L Creatinine (0.7-1.2) mg/dL Glucose (65-100) mg/dL POC Glucose 247 H 272 H 246 H (70-105) Hemoglobin A1c (4-6) % Phosphorus (2.5-4.5) mg/dL Urine Creatinine (0.1-20.0) mg/dL 06/01/19 06/01/19 06/01/19 Range/Units 08:40 09:39 10:40 WBC (4.5-11.0) K/mm3 RBC (3.65-5.03) M/mm3 Hgb (10.1-14.3) gm/dl Hct (30.3-42.9) % Lymph % (Auto) (13.4-35.0) % Seg Neutrophils % (40.0-70.0) % Seg Neutrophils # (1.8-7.7) K/mm3 Sodium (137-145) mmol/L Potassium (3.6-5.0) mmol/L Chloride (98-107) mmol/L Carbon Dioxide (22-30) mmol/L Creatinine (0.7-1.2) mg/dL Glucose (65-100) mg/dL POC Glucose 232 H 225 H (70-105) Hemoglobin A1c (4-6) % Phosphorus (2.5-4.5) mg/dL Urine Creatinine 104.3 H (0.1-20.0) mg/dL 06/01/19 Range/Units 11:38 WBC (4.5-11.0) K/mm3 RBC (3.65-5.03) M/mm3 Hgb (10.1-14.3) gm/dl Hct (30.3-42.9) % Lymph % (Auto) (13.4-35.0) % Seg Neutrophils % (40.0-70.0) % Seg Neutrophils # (1.8-7.7) K/mm3 Sodium (137-145) mmol/L Potassium (3.6-5.0) mmol/L Chloride (98-107) mmol/L Carbon Dioxide (22-30) mmol/L Creatinine (0.7-1.2) mg/dL Glucose (65-100) mg/dL POC Glucose 223 H (70-105) Hemoglobin A1c (4-6) % Phosphorus (2.5-4.5) mg/dL Urine Creatinine (0.1-20.0) mg/dL - Imaging and Cardiology Chest x-ray: image reviewed (clear, no evidence of acute lung disease) Assessment and Plan 48 y/o female with HHNK and obesity and newly diagnosed diabetes. 1. Needs diabetic education 2. Weight loss 3. Needs volume given low sodium and chloride 4. Agree with stopping insulin drip 5. STable for transfer out of unit. CCT 31 minutes.
[2019-06-01] MEDS ORDERED: LANTUS SUB-Q SCH (22:00)
[2019-06-02 05:33] LABS: Hematocrit 42.8 % (30.3-42.9); Hemoglobin 14.5 gm/dl (10.1-14.3); Mean Corpuscular HGB Conc 34 % (30-34); Mean Corpuscular Volume 87 fl (79-97); Platelet Count 292 K/mm3 (140-440); Red Blood Count 4.93 M/mm3 (3.65-5.03); Red Cell Distribution Width 13.7 % (13.2-15.2)
[2019-06-02 05:44] LABS: BUN/Creatinine Ratio 23; Blood Urea Nitrogen 14 mg/dL (7-17); Calcium 8.5 mg/dL (8.4-10.2); HDL Cholesterol 38 mg/dL (40-59); Hemolysis Index 6; LDL Cholesterol,Direct 209 mg/dL (50-130)
--- NOTE | 2019-06-02 07:17 | Discharge Summary ---
Providers - Providers Date of Admission: 05/31/19 20:14 Date of discharge: 06/02/19 Attending physician: LEXA COLON 05/31/19 20:09 Consult to Physician [CONS] Routine Comment: Consulting Provider: IMTIAZ STARK Physician Instructions: Reason For Exam: hyperosmolar nonketotic state in diabetes [facility] Condition: Stable Hospital course: Patient is a 48 yo woman with a history of asthma and left rotator cuff injury who presents to [facility] with left sided Chest pains at rest that was different from the left shoulder pains. She also had dizziness and sob. She had just come back from doctor after receiving Cortisone injection for the left rotator cuff pains. She had bp of 200/124 and temp of 100.0F. Her blood glucose level was as high as 666. She denies having DM. She did have trace ketones in the urine but pH was 7.397 so she was diagnosis with HONK instead of DKA. She was placed on Insulin drip and admitted to the ICU. HONK: transition off insulin drip to long acting insulin New onset IDDM, A1c is 13.1 which means her daily average blood glucose is ~326: Education done, start sq insulin injection HypoOsm hyponatremia: treat with IVF Suspected mild metabolic acidosis, resolved Chest pains with negative Troponins x 2: stress test in AM, cancel this morning by Cardiology because patient on insulin drip, once off insulin drip Leukocytosis suspected due to the "cortisone injection" new Dyslipidemia: treat with statin and lifestyle modification discussed DVT ppx reviewed on sq lovenox full code d/c if stress test negative Disposition: - TO HOME OR SELFCARE Time spent for discharge: 32 minutes Core Measure Documentation - Palliative Care Palliative Care/ Comfort Measures: Not Applicable - Core Measures Any of the following diagnoses?: none - VTE Discharge Requirements Deep Vein Thrombosis/Pulmonary Embolism Present on Admission: No Has pt received <5 days of overlap therapy or INR<2.0: No Anticoagulant overlap therapy prescribed at discharge: No Contraindication No Overlap Therapy order at DC: Not Indicated Exam - Physical Exam Narrative exam: Gen: WDWN, unkempt, NAD, Awake, Alert, Orientated x 3, bmi 42.8 HEENT: NCAT, EOMI, PERRL, OP Clear Neck: supple, no adenopathy, no thyromegaly, no JVD CVS/Heart: RRR, normal S1S2, pulses present bilaterally Chest/Lungs: CTA B, Symmetrical chest expansion, good air entry bilaterally, reproducible left side chest wall tenderness GI/Abdomen: soft, NTND, good bowel sounds, no guarding or rebound /Bladder: no suprapubic tenderness, no CVA or paraspinal tenderness Extermity/Skin: no c/c/e, no obvious rash MSK: FROM x 3, lrom left shoulder not frozen Neuro: CN 2-12 grossly intact, no new focal deficits Psych: calm - Constitutional Vitals: Temp Pulse Resp BP Pulse Ox 98.1 F 77 18 117/63 98 06/02/19 04:14 06/02/19 04:14 06/02/19 04:14 06/02/19 04:14 06/02/19 04:14 Plan Activity: other (no strenous activtiy unless cleared by PCP) Diet: low salt, diabetic Special Instructions: record daily BP diary, record blood sugar diary [facility] KYLIE [Primary Care Provider] - 7 Days Forms: Work/School Release Form Prescriptions: Insulin Glargine [Lantus VIAL] 22 units SUB-Q QHS #1 vial AtorvaSTATin [Lipitor] 40 mg PO QHS #30 tablet Aspirin [Aspirin BABY CHEW TAB] 81 mg PO QDAY #30 tab.chew Lispro Insulin [HumaLOG] 1 dose SUB-Q ACHS PRN #1 vial PRN Reason: Hyperglycemia Other Discharge Orders: Glucometer (Amb) Location: None Selected Glucometer supplies[Amb] Location: None Selected
[2019-06-02] MEDS: HumaLOG SUB-Q SCH (08:00)
[2019-06-02] MEDS ORDERED: LANTUS SUB-Q SCH (08:00)
[2019-06-02] MEDS ORDERED: LEXISCAN IV ONE ×2 (09:40→09:41)
[2019-06-02] MEDS: BABY ASPIRIN PO SCH (10:00)
[2019-06-02] MEDS ORDERED: BABY ASPIRIN PO SCH (10:00)
[2019-06-02] MEDS: SODIUM CHLORIDE FLUSH SYRINGE 10 ML IV SCH (10:00)
[2019-06-02] MEDS: LOVENOX SUB-Q SCH (10:00)
[2019-06-02 10:19] VITALS: BP 151/78
--- NOTE | 2019-06-02 14:47 | Progress Note ---
Assessment and Plan 48 y/o female with HHNK and obesity and newly diagnosed diabetes. 1. WIll sign off at this time. Please call if questions, concerns. Subjective Date of service: 06/02/19 Interval history: Successful transition out of ICU. No pulmonary issues. Objective - Constitutional Vitals: Vital Signs - 12hr 06/02/19 06/02/19 06/02/19 04:14 08:03 08:43 Temperature 98.1 F 98.3 F Pulse Rate 77 84 Pulse Rate [ 98 H Right Dorsalis Pedis] Respiratory 18 18 14 Rate Blood Pressure 117/63 167/94 O2 Sat by Pulse 98 96 96 Oximetry 06/02/19 06/02/19 06/02/19 09:27 09:59 10:01 Temperature Pulse Rate Pulse Rate [ Right Dorsalis Pedis] Respiratory Rate Blood Pressure 139/80 149/84 153/83 O2 Sat by Pulse Oximetry 06/02/19 06/02/19 06/02/19 10:02 10:03 10:04 Temperature Pulse Rate Pulse Rate [ Right Dorsalis Pedis] Respiratory Rate Blood Pressure 147/74 140/75 151/78 O2 Sat by Pulse Oximetry - Labs CBC & Chem 7: 06/02/19 04:53 06/02/19 04:53 Labs: Abnormal lab results 06/01/19 06/01/19 06/02/19 Range/Units 16:43 21:58 04:53 WBC 14.6 H (4.5-11.0) K/mm3 Hgb 14.5 H (10.1-14.3) gm/dl Sodium (137-145) mmol/L Creatinine (0.7-1.2) mg/dL Glucose (65-100) mg/dL POC Glucose 323 H 296 H (70-105) Cholesterol (50-199) mg/dL LDL Cholesterol Direct (50-130) mg/dL HDL Cholesterol (40-59) mg/dL 06/02/19 06/02/19 06/02/19 Range/Units 04:53 08:07 11:49 WBC (4.5-11.0) K/mm3 Hgb (10.1-14.3) gm/dl Sodium 135 L (137-145) mmol/L Creatinine 0.6 L (0.7-1.2) mg/dL Glucose 355 H (65-100) mg/dL POC Glucose 280 H 283 H (70-105) Cholesterol 247 H (50-199) mg/dL LDL Cholesterol Direct 209 H (50-130) mg/dL HDL Cholesterol 38 L (40-59) mg/dL Medications & Allergies - Medications Allergies/Adverse Reactions: Allergies No Known Allergies Allergy (Unverified 03/22/19 13:19) Home Medications: Home Medications Medication Instructions Recorded Confirmed Last Taken Type Aspirin [Aspirin BABY CHEW TAB] 81 mg PO QDAY #30 tab.chew 06/02/19 Unknown Rx AtorvaSTATin [Lipitor] 40 mg PO QHS #30 tablet 06/02/19 Unknown Rx Insulin Glargine [Lantus VIAL] 22 units SUB-Q QHS #1 vial 06/02/19 Unknown Rx Lispro Insulin [HumaLOG] 1 dose SUB-Q ACHS PRN #1 vial 06/02/19 Unknown Rx Active Medications: Generic Name Dose Route Start Last Admin Trade Name Freq PRN Reason Stop Dose Admin Aspirin 81 mg 06/01/19 11:00 06/01/19 11:03 Baby Aspirin PO 81 mg QDAY EMI Administration Atorvastatin Calcium 40 mg 06/01/19 22:00 06/01/19 21:40 Lipitor PO 40 mg QHS EMI Administration Dextrose 50 ml 06/01/19 10:26 D50w (25gm) Syringe IV PRN PRN Hypoglycemia Enoxaparin Sodium 40 mg 05/31/19 21:00 06/01/19 09:52 Lovenox SUB-Q 40 mg QDAY EMI Administration Hydromorphone HCl 0.5 mg 05/31/19 20:14 Dilaudid IV Q3H PRN Pain , Severe (7-10) Sodium Chloride 1,000 mls @ 125 mls/hr 05/31/19 22:00 05/31/19 21:00 Nacl 0.9% 1000 Ml IV 125 mls/hr DIRECT EMI Administration Insulin Glargine 10 units 06/01/19 22:00 06/01/19 21:40 Lantus SUB-Q 10 units QHS EMI Administration Insulin Human Lispro 0 unit 06/01/19 11:30 06/02/19 08:00 Humalog SUB-Q Not Given ACHS EMI Protocol Sodium Chloride 10 ml 05/31/19 22:00 06/01/19 21:40 Sodium Chloride Flush Syringe 10 Ml IV 10 ml BID EMI Administration Sodium Chloride 10 ml 05/31/19 20:14 Sodium Chloride Flush Syringe 10 Ml IV PRN PRN LINE FLUSH
--- NOTE | 2019-06-02 23:59 | Treadmill Report ---
NUCLEAR STRESS TEST REFERRING PHYSICIAN: Dr. Barber. PROTOCOL: The patient was brought to the stress lab in a postabsorptive state, given 10 mCi of technetium 99m at rest. The patient underwent rest imaging. The patient underwent Lexiscan stress test. At peak stress, the patient was given 26 mCi of technetium 99m. Shortly thereafter, the patient underwent stress imaging. INTERPRETATION: Technically somewhat difficult study due to body habitus, but grossly normal homogenous uptake of radioisotope in all reported segments. No evidence of significant fixed or reversible perfusion defects suggestive of prior infarction or ischemia. Gated wall motion reveals normal systolic thickening, calculated ejection fraction of 69%. No TID. CONCLUSIONS: 1. Normal myocardial perfusion scan without evidence of active ischemia or prior infarction. 2. Normal left ventricular systolic performance without evidence of transient ischemic dilatation or stress-induced segmental wall motion abnormalities. JOB# [id number] MARTIN/LISA
== END 2019-06-02 16:53 | disposition home or self-care (01) | DRG 638 ==
LOC: ED 16:27 → CC1 20:14 → 4A 06-01 20:57
PROVIDERS: ADMIT Internal Medicine; ATTEND Internal Medicine
DX: E11.00 Type 2 diabetes mellitus with hyperosmolarity without nonketotic hyperglycemic-hyperosmolar coma (NKHHC) (principal); E87.1 Hypo-osmolality and hyponatremia; E87.2 Acidosis; Z68.41 Body mass index [BMI] 40.0-44.9, adult; R07.9 Chest pain, unspecified; E87.5 Hyperkalemia; E66.9 Obesity, unspecified; J45.909 Unspecified asthma, uncomplicated; D72.829 Elevated white blood cell count, unspecified; E78.5 Hyperlipidemia, unspecified; M25.512 Pain in left shoulder; M75.102 Unspecified rotator cuff tear or rupture of left shoulder, not specified as traumatic; Z79.82 Long term (current) use of aspirin; Z79.899 Other long term (current) drug therapy; Z79.4 Long term (current) use of insulin
CPT/HCPCS: 36415; 71045; 78452; 80048; 80061; 81001; 82043; 82805; 82962; 83036; 83735; 84100; 84443; 84484; 84703; 85025; 85027; 93005; 93010; 93017; 96361; 96374; G0378; A9270-GY; A9502; J1650; J1815; J2270; J2785; J7030

== ENCOUNTER 2019-11-24 09:55 | Outpatient (CLI) | payer BC ==
--- NOTE | 2019-11-24 11:29 | Magnetic Resonance Report ---
MR LEFT SHOULDER HISTORY: Rotator cuff disorder, difficulty lifting arm overhead, left shoulder pain COMPARISON: None. TECHNIQUE: Routine noncontrast MRI of the left shoulder obtained. CONTRAST: None. FINDINGS: Supraspinatus tendon: A moderate full-thickness tear is identified in the distal anterior supraspinat us tendon which probably involves the rotator cuff interval. Infraspinatus tendon: There is increased intrinsic signal in the distal infraspinatus tendon with gre ater than 50% partial-thickness tear suspected. Teres Minor tendon: No significant abnormality. Subscapularis tendon: No significant abnormality. Biceps Tendon: The biceps tendon is difficult to identify. It appears to be intact but subluxed media lly. Acromioclavicular Joint: Mild osteoarthritic changes. Labrum: No gross abnormality. Bone Marrow: No significant abnormality. Muscles: No significant abnormality. Inferior Glenohumeral ligament: No significant abnormality. Additional Findings: Small joint effusion and fluid in the subdeltoid bursa. IMPRESSION: Full thickness tear in the distal anterior supraspinatus tendon is suspected which is most likely inv olves the rotator cuff interval. At least a 50% partial-thickness tear in the distal infraspinatus tendon is suspected. Mild osteoarthritis. Joint effusion and bursal fluid as described. Signer Name: Fabián Merino Jr, MD Signed: 11/24/2019 11:25 AM Workstation Name: [id number]
== END 2019-11-24 09:56 | disposition home or self-care (01) ==
LOC: MRI 09:55
PROVIDERS: ATTEND Orthopaedic Surgery
DX: S46.811A Strain of other muscles, fascia and tendons at shoulder and upper arm level, right arm, initial encounter (principal); M19.012 Primary osteoarthritis, left shoulder; M25.412 Effusion, left shoulder; X58.XXXA Exposure to other specified factors, initial encounter; Y93.89 Activity, other specified; Y92.89 Other specified places as the place of occurrence of the external cause; Y99.8 Other external cause status